=== PATIENT | female | born 1940 | race Caucasian/White ===

== ENCOUNTER 2021-09-03 10:03 | Outpatient (CLI) | payer BC | END 2021-09-03 10:04 | disposition home or self-care (01) | LOC: BICULT 10:03 | PROVIDERS: ATTEND Family Medicine | DX: N23 Unspecified renal colic (principal) | CPT/HCPCS: 76770 ==

== ENCOUNTER 2023-12-24 10:46 | Outpatient (CLI) | payer BC | END 2023-12-24 10:47 | disposition home or self-care (01) | LOC: BICMAMMO 10:46 | PROVIDERS: ATTEND Family Medicine | DX: Z12.31 Encounter for screening mammogram for malignant neoplasm of breast (principal) | CPT/HCPCS: 77063; 77067 ==

== ENCOUNTER 2024-09-20 10:46 | Outpatient (CLI) | payer BC | END 2024-09-20 10:47 | disposition home or self-care (01) | LOC: BICMAMMO 10:46 | PROVIDERS: ATTEND Family Medicine | DX: N95.9 Unspecified menopausal and perimenopausal disorder (principal); M85.852 Other specified disorders of bone density and structure, left thigh | CPT/HCPCS: 77080 ==

== ENCOUNTER 2024-10-18 14:26 | Outpatient (CLI) | payer BC | END 2024-10-18 14:27 | disposition home or self-care (01) | LOC: BICRAD 14:26 | PROVIDERS: ATTEND Family Medicine | DX: M54.6 Pain in thoracic spine (principal); R07.81 Pleurodynia; S22.009A Unspecified fracture of unspecified thoracic vertebra, initial encounter for closed fracture | CPT/HCPCS: 71046; 72070 ==

== ENCOUNTER 2025-08-28 10:03 | Emergency (ER) | payer MEDICARE ==
[2025-08-28] MEDS ORDERED: diphenhydrAMINE 25 MG CAP ONE (10:47)
[2025-08-28] MEDS ORDERED: predniSONE 20 MG TAB ONE (10:48)
[2025-08-28] MEDS ORDERED: Famotidine 20 MG TAB ONE (10:48)
== END 2025-08-28 11:30 | disposition home or self-care (01) ==
LOC: ERS 10:03
DX: T78.40XA Allergy, unspecified, initial encounter (principal); R21 Rash and other nonspecific skin eruption; I10 Essential (primary) hypertension; Z87.891 Personal history of nicotine dependence; Z79.899 Other long term (current) drug therapy
CPT/HCPCS: 99282; J7512